=== PATIENT | male | born 1970 | race Caucasian/White ===

== ENCOUNTER → 2021-01-08 | Outpatient (CLI) | payer OTHER ==
[~2021-01-08] MED LIST: CATHETER FLUSH 10 ML SYR IV PRN
--- NOTE | 2021-01-08 14:58 | Diagnostic Imaging Report ---
INDICATION: Right anterior ankle pain, status post injury in August 2020. Patient was administered 26.8 mCi technetium 99M MDP intravenously and dynamic flow, blood pool and delayed imaging over the bilateral lower extremities was performed. No prior studies are available for comparison. There appears to be symmetric blood flow to both lower extremities. There is some blood pool activity which appears be fairly symmetric within the ankles and mid feet. There is some mild delayed activity as well in the ankles and mid feet. This is likely on a degenerative basis. There are no three-phase bone scan abnormalities to suggest osteomyelitis. IMPRESSION: Probable degenerative uptake. There are no findings to suggest osteomyelitis. Dictated by: Dictated on workstation # [id number]
== END ==
LOC: CARD 11:12
PROVIDERS: ATTEND Internal Medicine Medical Oncology
DX: M19.071 Primary osteoarthritis, right ankle and foot (principal); M84.363A Stress fracture, right fibula, initial encounter for fracture
CPT/HCPCS: 78315; A9503